=== PATIENT | male | born 1955 | race American Indian/Alaskan Native ===

== ENCOUNTER 2017-11-22 12:37 | Emergency (ER) | payer OTHER ==
[2017-11-22 12:48] VITALS: BP 141/80
[2017-11-22] MEDS ORDERED: MOTRIN PO ONE (14:00)
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
--- NOTE | 2017-11-22 16:02 | XRay Report ---
FINAL REPORT EXAM: XR HIP 2-3V LT HISTORY: fall injury TECHNIQUE: AP view of pelvis and frogleg lateral view of left hip. PRIORS: None. FINDINGS: Degenerative changes in the bilateral hip joints. No apparent fracture or dislocation. Soft tissues grossly unremarkable. IMPRESSION: 1. No acute osseous abnormality. 2. Degenerative changes.
== END 2017-11-22 16:54 | disposition home or self-care (01) ==
LOC: ED 12:37
DX: M16.12 Unilateral primary osteoarthritis, left hip (principal); V19.9XXA Pedal cyclist (driver) (passenger) injured in unspecified traffic accident, initial encounter; Y93.89 Activity, other specified; Y99.8 Other external cause status; Y92.89 Other specified places as the place of occurrence of the external cause
CPT/HCPCS: 99283